=== PATIENT | female | born 1930 | race Caucasian/White ===

== ENCOUNTER 2021-03-13 10:32 | Emergency (ER) | payer MEDICARE ==
[~2021-03-13] VITALS: Ht 165.1 cm; Wt 55.3 kg
== END 2021-03-13 11:00 | disposition home or self-care (01) ==
LOC: ER 10:48
DX: I10 Essential (primary) hypertension (principal); I48.91 Unspecified atrial fibrillation; F41.9 Anxiety disorder, unspecified
CPT/HCPCS: 99282